=== PATIENT | female | born 1995 | race African-American/Black ===

== ENCOUNTER 2018-09-09 14:28 | Inpatient (IN) | payer MEDICAID, OTHER ==
[~2018-09-09] VITALS: Ht 162.6 cm; Wt 104.3 kg
[2018-09-09] MEDS ORDERED: DEXT 5%/LR + PITOCIN 20UNITS/L 1,000 ML IV SCH (14:42)
[2018-09-09] MEDS ORDERED: LACTATED RINGERS 1,000 ML IV SCH (14:42)
[2018-09-09] MEDS ORDERED: BUTORPHANOL TARTRATE 2 MG/ML VIAL IV PRN (14:45)
[2018-09-09] MEDS ORDERED: NALOXONE HCL 0.4 MG/ML 1ML VIAL IM PRN (14:45)
[2018-09-09] MEDS ORDERED: LIDOCAINE HCL 1% 20ML VIAL (Pyxis) INJ INFIL PRN (14:45)
[2018-09-09] MEDS ORDERED: PENICILLIN G POTASSIUM 5 MMU in DEXT 5% WATER 100 ML IV SCH (14:45)
[2018-09-09] MEDS ORDERED: MISOPROSTOL 100MCG TABLET VG PRN (14:45)
[2018-09-09] MEDS ORDERED: METHYLERGONOVINE MALEATE 0.2 MG/ML IM PRN ×2 (14:45→16:00)
[2018-09-09] MEDS ORDERED: IBUPROFEN 400MG TABLET PO PRN (16:00)
[2018-09-09] MEDS ORDERED: RHO(D) IMMUNE GLOBULIN 300 MCG/SYR IM PRN (16:00)
[2018-09-09] MEDS ORDERED: LANOLIN OINT 0.25 GM TUBE TOP PRN (16:00)
[2018-09-09 17:05] LABS: HEMATOCRIT. 30.7 % (36.0-48.0); MEAN CORPUSCULAR HEMOGLOBIN 25.3 pg (28.0-32.0); MEAN CORPUSCULAR VOLUME 77.7 fL (81.0-99.0); MEAN PLATELET VOLUME 10.1 fl (7.4-10.4); PLATELET 205 x1000/uL (130-400); RED BLOOD CELL COUNT 3.95 mill/uL (4.2-5.4); RED CELL DISTRIBUTION WIDTH 16.3 % (11.6-14.6)
[2018-09-09] MEDS: DEXT 5%/LR + PITOCIN 20UNITS/L 1,000 ML IV SCH ×2 (17:05→23:49)
[2018-09-09 17:06] LABS: PARTIAL THROMBOPLASTIN TIME 27.8 sec (23.4-31.0); PROTHROMBIN TIME 9.6 sec (9.1-11.1)
[2018-09-09 17:13] LABS: CLARITY URINE TURBID (CLEAR); COLOR URINE RED (YELLOW); KETONES URINE 2+ (NEGATIVE); LEUKOCYTE ESTERASE URINE 2+ (NEGATIVE); NITRITE URINE POSITIVE (NEGATIVE); OCCULT BLOOD URINE 2+ (NEGATIVE); PH URINE 5.5 (4.5-8.0); PROTEIN URINE 2+ (NEGATIVE); UROBILINOGEN URINE 0.2 E.U./dL (0.2-1.0)
[2018-09-09 17:29] LABS: *AMPHETAMINES SCREEN URINE NEGATIVE (NEGATIVE); *BARBITURATES SCREEN URINE NEGATIVE (NEGATIVE); *BENZODIAZEPINES SCREEN URINE NEGATIVE (NEGATIVE); *COCAINE SCREEN URINE NEGATIVE (NEGATIVE)
[2018-09-09 17:30] LABS: CANNABINOID URINE SCREEN NEGATIVE (NEGATIVE); METHADONE URINE SCREEN NEGATIVE (NEGATIVE); OPIATES URINE SCREEN NEGATIVE (NEGATIVE); PHENCYCLIDINE URINE SCREEN NEGATIVE (NEGATIVE)
[2018-09-09] MEDS ORDERED: INFLUENZA VIRUS VACCINE(AFLURIA) 0.5ML SYR IM ONE (17:30)
[2018-09-09 17:39] LABS: HEPATITIS B SURFACE ANTIGEN NEGATIVE
[2018-09-09 18:30] VITALS: BP 109/53
[2018-09-09 19:00] VITALS: BP 110/66
[2018-09-09] MEDS ORDERED: PENICILLIN G POTASSIUM 2.5 MMU in DEXTROSE 5% WATER 50 ML IV SCH (19:00)
[2018-09-09 20:29] LABS: PLATELET ESTIMATE NORMAL
[2018-09-09 22:00] VITALS: BP 90/59
[2018-09-10] MEDS: IBUPROFEN 800MG TABLET PO PRN ×2 (02:18→21:47)
[2018-09-10 06:00] VITALS: BP 101/60
[2018-09-10 07:47] LABS: BASOPHILS % 0.2 % (0.0-2.0); EOSINOPHILS % 0.2 % (0.0-5.0); HEMATOCRIT. 26.6 % (36.0-48.0); HEMOGLOBIN. 8.8 g/dL (12.0-16.0); LYMPHOCYTES % 14.2 % (20.0-50.0); MEAN CORPUSCULAR HEMOGLOBIN 25.5 pg (28.0-32.0); MEAN PLATELET VOLUME 9.6 fl (7.4-10.4); MONOCYTES % 5.4 % (2.0-8.0); PLATELET 202 x1000/uL (130-400); RED BLOOD CELL COUNT 3.46 mill/uL (4.2-5.4)
[2018-09-10] MEDS ORDERED: PRENATAL VIT/FE FUMARATE/FA TABLET PO SCH (09:00)
[2018-09-10 20:00] VITALS: BP 122/89
[2018-09-11] MEDS: IBUPROFEN 800MG TABLET PO PRN (05:18)
[2018-09-11 06:00] VITALS: BP 98/57
[2018-09-11 07:50] LABS: HEMOGLOBIN 8.8 g/dL (12.0-16.0); MEAN CORPUSCULAR HEMOGLOBIN 25.5 pg (28.0-32.0); PLATELET 209 x1000/uL (130-400); RED BLOOD CELL COUNT 3.46 mill/uL (4.2-5.4)
[2018-09-11 08:15] VITALS: BP 108/64
== END 2018-09-11 12:45 | disposition home or self-care (01) | DRG 560 ==
LOC: OB TRIAGE 14:28 → OBSVTOIN 14:28 → 8 EST LDRP 14:48 → 8EST 21:47
PROVIDERS: ADMIT Obstetrics & Gynecology; ATTEND Obstetrics & Gynecology
PROC: 10E0XZZ Delivery of Products of Conception, External Approach (ICD-10-PCS; principal; 2018-09-09)
DX: O69.81X0 Labor and delivery complicated by cord around neck, without compression, not applicable or unspecified (principal); D62 Acute posthemorrhagic anemia; O99.03 Anemia complicating the puerperium; O99.89 Other specified diseases and conditions complicating pregnancy, childbirth and the puerperium; Z3A.38 38 weeks gestation of pregnancy; D72.829 Elevated white blood cell count, unspecified; Z37.0 Single live birth
CPT/HCPCS: 36415; 80305; 85027; 86592; 86703; 86762; 86850; 86900; 87340; 90686; 99281; J2540; J2590; J7060